=== PATIENT | female | born 1995 | race Caucasian/White ===

== ENCOUNTER 2017-09-15 12:49 | Emergency (ER) | payer OTHER ==
--- NOTE | 2017-09-15 13:58 | ED ---
General Adult HPI - General Chief complaint: Abdominal Pain Stated complaint: Flank pain Time Seen by Provider: 09/15/17 13:34 Source: patient, RN notes reviewed Mode of arrival: ambulatory Limitations: no limitations - History of Present Illness Initial comments: Patient 21-year-old female presented to the emergency room today with a chief complaint of possible urinary tract infection. She does admit to increased urinary frequency and pain. Patient states that she has had symptoms for the last 3 days. She states that she was feeling some symptoms earlier in the week but then it went away. She does admit that she had some pain to the right side but that is also gone away at this time. Patient denies any vaginal bleeding or discharge. Denies any other complaints or symptoms. Patient denies any recent fever, chills, shortness of breath, chest pain, nausea or vomiting, numbness or tingling, hematuria, constipation or diarrhea, headaches or visual changes, or any other complaints. - Related Data Home Medications Medication Instructions Recorded Confirmed DULoxetine HCL [Cymbalta] 20 mg PO DAILY 09/15/17 09/15/17 QUEtiapine [SEROquel] 100 mg PO HS 09/15/17 09/15/17 hydrOXYzine PAMOATE 50 mg PO BID 09/15/17 09/15/17 Previous Rx's Medication Instructions Recorded Phenazopyridine [Pyridium] 100 mg PO TID 3 Days day 09/15/17 Sulfamethox-Tmp 800-160Mg [Bactrim 1 tab PO Q12HR #6 tab 09/15/17 DS 800-160 mg] Allergies Allergy/AdvReac Type Severity Reaction Status Date / Time No Known Allergies Allergy Verified 09/15/17 13:46 Review of Systems ROS Statement: Those systems with pertinent positive or pertinent negative responses have been documented in the HPI. ROS Other: All systems not noted in ROS Statement are negative. Past Medical History Past Medical History: No Reported History History of Any Multi-Drug Resistant Organisms: None Reported Past Surgical History: No Surgical Hx Reported Past Psychological History: Anxiety, Bipolar, Depression Smoking Status: Current every day smoker Past Alcohol Use History: Rare Past Drug Use History: None Reported General Exam - General Exam Comments Initial Comments: General: The patient is awake and alert, in no distress, and does not appear acutely ill. Eye: Pupils are equal, round and reactive to light, extra-ocular movements are intact. No nystagmus. There is normal conjunctiva bilaterally. No signs of icterus. Ears, nose, mouth and throat: There are moist mucous membranes and no oral lesions. Neck: The neck is supple, there is no tenderness or JVD. Cardiovascular: There is a regular rate and rhythm. No murmur, rub or gallop is appreciated. Respiratory: Lungs are clear to auscultation, respirations are non-labored, breath sounds are equal. No wheezes, stridor, rales, or rhonchi. Gastrointestinal: Soft, non-distended, non-tender abdomen without masses or organomegaly noted. There is no rebound or guarding present. No CVA tenderness. Musculoskeletal: Normal ROM, no tenderness. Strength 5/5. Sensation intact. Pulses equal bilaterally 2+. Neurological: A&O x 3. CN II-XII intact, There are no obvious motor or sensory deficits. Coordination appears grossly intact. Speech is normal. Skin: Skin is warm and dry and no rashes or lesions are noted. Psychiatric: Cooperative, appropriate mood & affect, normal judgment. Limitations: no limitations Course Vital Signs 09/15/17 09/15/17 13:15 14:17 Temperature 98.2 F 98.6 F Pulse Rate 73 78 Respiratory 18 18 Rate Blood Pressure 103/71 139/97 O2 Sat by Pulse 100 98 Oximetry Medical Decision Making - Medical Decision Making Patient's urinalysis reviewed as negative test. There are 16 red cells. Rare bacteria. Patient does not that this feels similar to urinary tract infection that she's had in the past. Admits to dysuria with increased frequency. Patient says she is not worried about any STDs. No vaginal bleeding or discharge. Patient will have urine culture which is pending. Given antibiotics to cover for infection for 3 days along with Pyridium and advised to follow family doctor symptoms improving return here to emergency room if any symptoms increase worsen. - Lab Data Lab Results 09/15/17 09/15/17 Range/Units 13:30 13:30 Urine Color Yellow Urine Appearance Clear (Clear) Urine pH 7.5 (5.0-8.0) Ur Specific [place] 1.012 (1.001-1.035) Urine Protein Trace H (Negative) Urine Glucose (UA) Negative (Negative) Urine Ketones Negative (Negative) Urine Blood Trace H (Negative) Urine Nitrite Negative (Negative) Urine Bilirubin Negative (Negative) Urine Urobilinogen <2.0 (<2.0) mg/dL Ur Leukocyte Esterase Negative (Negative) Urine RBC 16 H (0-5) /hpf Urine WBC 2 (0-5) /hpf Ur Squamous Epith Cells 1 (0-4) /hpf Amorphous Sediment Rare H (None) /hpf Urine Bacteria Rare H (None) /hpf Urine Mucus Occasional H (None) /hpf Urine HCG, Qual Not Detected (Not Detectd) Disposition Clinical Impression: Cystitis Disposition: HOME SELF-CARE Condition: Good Instructions: Urinary Tract Infection in Women (ED) Additional Instructions: Please use medication as discussed. Please follow-up with family doctor in the next 2 days of symptoms have not improved. Please return to emergency room if the symptoms increase or worsen or for any other concerns. Prescriptions: Phenazopyridine [Pyridium] 100 mg PO TID 3 Days day Sulfamethox-Tmp 800-160Mg [Bactrim DS 800-160 mg] 1 tab PO Q12HR #6 tab Is patient prescribed a controlled substance at d/c from ED?: No Referrals: None,Stated [Primary Care Provider] - 1-2 days Vero Butt MD [STAFF PHYSICIAN] - 1-2 days Time of Disposition: 14:42
[2017-09-15 14:34] LABS: Amorphous Sediment,Urine Rare /hpf; Appearance,Urine Clear (Clear); Bacteria,Urine Rare /hpf; Bilirubin,Urine Negative (Negative); Blood,Urine Trace (Negative); Color,Urine Yellow; Glucose,Urine (UA) Negative (Negative); Ketones,Urine Negative (Negative); Leukocyte Esterase,Urine Negative (Negative); Mucus,Urine Occasional /hpf; Nitrite,Urine Negative (Negative); PH, Urine 7.5 (5.0-8.0); Protein,Urine Trace (Negative); RBC,Urine 16 /hpf (0-5); Specific Gravity,Urine 1.012 (1.001-1.035); Squamous Epithelial Cell,Urine 1 /hpf (0-4); Urobilinogen,Urine <2.0 mg/dL (<2.0); WBC,Urine 2 /hpf (0-5)
[2017-09-15 14:47] VITALS: BP 112/73; PULSE 74; RESP 16; TEMP 100
== END 2017-09-15 14:52 | disposition home or self-care (01) ==
LOC: EC 12:49
DX: N30.90 Cystitis, unspecified without hematuria (principal); F31.9 Bipolar disorder, unspecified; F41.9 Anxiety disorder, unspecified; F17.200 Nicotine dependence, unspecified, uncomplicated; Z79.899 Other long term (current) drug therapy
CPT/HCPCS: 81001; 81025; 87086; 99284

== ENCOUNTER 2018-11-05 20:56 | Emergency (ER) | payer OTHER ==
[2018-11-05] MEDS ORDERED: SODIUM CHLORIDE 0.9% 1,000 ML IV STA ×4 (21:37→21:38)
[2018-11-05] MEDS ORDERED: SODIUM CHLORIDE 0.9% 500 ML 500 ML IV STA ×2 (21:37→21:38)
[2018-11-05] MEDS ORDERED: ONDANSETRON 4 MG/2 ML VIAL IVP STA (21:38)
[2018-11-05] MEDS ORDERED: LORazepam 2 MG/ML INJ IV STA ×2 (21:39→23:54)
[2018-11-05 22:43] LABS: Basophils # (A) 0.1 k/uL (0-0.2); Basophils % (A) 1 %; Eosinophils # (A) 0.2 k/uL (0-0.7); Eosinophils % (A) 1 %; HCT 42.5 % (34.0-46.0); Lymphocytes # (A) 1.9 k/uL (1.0-4.8); Lymphocytes % (A) 12 %; MCH 30.3 pg (25.0-35.0); MCHC 35.2 g/dL (31.0-37.0); MCV 85.9 fL (80.0-100.0); Mean Platelet Volume 6.9; Monocytes # (A) 0.9 k/uL (0-1.0); Monocytes % (A) 6 %; Neutrophils % (A) 79 %; Platelet Count 505 k/uL (150-450); RBC 4.95 m/uL (3.80-5.40); RDW 15.4 % (11.5-15.5); WBC 15.2 k/uL (3.8-10.6)
[2018-11-05 22:52] LABS: ALT 13 U/L (9-52); AST 20 U/L (14-36); African American GFR (CKD) >90 (>60 ml/min/1.73 sqM); Albumin 5.4 g/dL (3.5-5.0); Alkaline Phosphatase 74 U/L (38-126); Anion Gap 18 mmol/L; Blood Urea Nitrogen 12 mg/dL (7-17); Carbon Dioxide 21 mmol/L (22-30); Chloride 104 mmol/L (98-107); Creatine Kinase 91 U/L (30-135); Glucose 178 mg/dL (74-99); Magnesium 1.8 mg/dL (1.6-2.3); Phosphorus 1.1 mg/dL (2.5-4.5); Potassium 3.2 mmol/L (3.5-5.1); Sodium 143 mmol/L (137-145); Total Bilirubin 0.5 mg/dL (0.2-1.3); Total Protein 9.2 g/dL (6.3-8.2)
--- NOTE | 2018-11-05 23:11 | ED ---
Anxiety HPI - General Chief Complaint: Anxiety Stated Complaint: Anxiety Time Seen by Provider: 11/05/18 21:14 Source: patient, RN notes reviewed, old records reviewed Mode of arrival: ambulatory - History of Present Illness Initial Comments: This is a 23-year-old female the ER for evaluation. This patient resents today for evaluation regards to anxiety attack panic attack. Patient states she's having significant panic related to recent meth or she believes was meth use. P at[place]ram has numbness and tingling of her extremities, mainly her hands and feet. Patient admits nausea and vomiting unable keep down fluids. Denies any other drug or alcohol abuse. Denies homicidal or suicidal thoughts. He said methods for recreation MD Complaint: anxiety, heart racing -: hour(s) Symptoms: palpitations, extremity numbness/tingling, perioral numbness/tingling, muscle cramps Place: home Previous History of Same: No Severity: moderate Quality: constant, intermittent Provoking factors: medication change (Medication use meth) Improves With: nothing Worsens With: nothing Associated symptoms: palpitations - Related Data Home Medications: Home Medications Medication Instructions Recorded Confirmed QUEtiapine FUMARATE [SEROquel] 300 mg PO HS 11/05/18 11/05/18 Allergies/Adverse Reactions: Allergies Allergy/AdvReac Type Severity Reaction Status Date / Time No Known Allergies Allergy Verified 11/05/18 21:50 Review of Systems ROS Statement: Those systems with pertinent positive or pertinent negative responses have been documented in the HPI. ROS Other: All systems not noted in ROS Statement are negative. Past Medical History Past Medical History: No Reported History History of Any Multi-Drug Resistant Organisms: None Reported Past Surgical History: No Surgical Hx Reported Past Psychological History: Anxiety, Bipolar, Depression Smoking Status: Current every day smoker Past Alcohol Use History: Rare Past Drug Use History: None Reported General Exam Limitations: no limitations General appearance: alert, in no apparent distress, anxious Head exam: Present: atraumatic, normocephalic, normal inspection Eye exam: Present: normal appearance, PERRL, EOMI. Absent: scleral icterus, conjunctival injection, periorbital swelling ENT exam: Present: normal exam, mucous membranes moist Neck exam: Present: normal inspection. Absent: tenderness, meningismus, lymphadenopathy Respiratory exam: Present: normal lung sounds bilaterally. Absent: respiratory distress, wheezes, rales, rhonchi, stridor Cardiovascular Exam: Present: regular rate, normal rhythm, normal heart sounds. Absent: systolic murmur, diastolic murmur, rubs, gallop, clicks GI/Abdominal exam: Present: soft, normal bowel sounds. Absent: distended, tenderness, guarding, rebound, rigid Extremities exam: Present: normal inspection, full ROM, normal capillary refill. Absent: tenderness, pedal edema, joint swelling, calf tenderness Back exam: Present: normal inspection Neurological exam: Present: alert, oriented X3, CN II-XII intact Psychiatric exam: Present: normal affect, normal mood Skin exam: Present: warm, dry, intact, normal color. Absent: rash Course Vital Signs 11/05/18 11/05/18 11/05/18 21:07 22:43 22:44 Temperature 98.9 F Pulse Rate 86 89 Respiratory 18 18 Rate Blood Pressure 144/73 131/71 O2 Sat by Pulse 100 98 99 Oximetry 11/05/18 11/06/18 23:00 00:00 Temperature Pulse Rate 90 84 Respiratory 18 18 Rate Blood Pressure 131/71 135/74 O2 Sat by Pulse 100 100 Oximetry - Reevaluation(s) Reevaluation #1: 11/06/18 00:08 Record is reviewed Reevaluation #2: 11/06/18 00:08 A she remains anxious Reevaluation #3: 11/06/18 00:40 Symptoms now improved Medical Decision Making - Medical Decision Making 23 female the ER for evaluation use and abuse significant panic attack. Patient is in stable condition here. Patient can be discharged home - Lab Data Result diagrams: 11/05/18 22:34 11/05/18 22:34 Lab Results 11/05/18 11/05/18 11/05/18 Range/Units 22:34 22:34 23:45 WBC 15.2 H (3.8-10.6) k/uL RBC 4.95 (3.80-5.40) m/uL Hgb 15.0 (11.4-16.0) gm/dL Hct 42.5 (34.0-46.0) % MCV 85.9 (80.0-100.0) fL MCH 30.3 (25.0-35.0) pg MCHC 35.2 (31.0-37.0) g/dL RDW 15.4 (11.5-15.5) % Plt Count 505 H (150-450) k/uL Neutrophils % 79 % Lymphocytes % 12 % Monocytes % 6 % Eosinophils % 1 % Basophils % 1 % Neutrophils # 12.0 H (1.3-7.7) k/uL Lymphocytes # 1.9 (1.0-4.8) k/uL Monocytes # 0.9 (0-1.0) k/uL Eosinophils # 0.2 (0-0.7) k/uL Basophils # 0.1 (0-0.2) k/uL Sodium 143 (137-145) mmol/L Potassium 3.2 L (3.5-5.1) mmol/L Chloride 104 (98-107) mmol/L Carbon Dioxide 21 L (22-30) mmol/L Anion Gap 18 mmol/L BUN 12 (7-17) mg/dL Creatinine 0.60 (0.52-1.04) mg/dL Est GFR (CKD-EPI)AfAm >90 (>60 ml/min/1.73 sqM) Est GFR (CKD-EPI)NonAf >90 (>60 ml/min/1.73 sqM) Glucose 178 H (74-99) mg/dL Calcium 11.0 H (8.4-10.2) mg/dL Phosphorus 1.1 L (2.5-4.5) mg/dL Magnesium 1.8 (1.6-2.3) mg/dL Total Bilirubin 0.5 (0.2-1.3) mg/dL AST 20 (14-36) U/L ALT 13 (9-52) U/L Alkaline Phosphatase 74 (38-126) U/L Creatine Kinase 91 (30-135) U/L Total Protein 9.2 H (6.3-8.2) g/dL Albumin 5.4 H (3.5-5.0) g/dL Urine Color Yellow Urine Appearance Cloudy H (Clear) Urine pH 8.5 H (5.0-8.0) Ur Specific [place] 1.029 (1.001-1.035) Urine Protein 2+ H (Negative) Urine Glucose (UA) Negative (Negative) Urine Ketones 4+ H (Negative) Urine Blood Negative (Negative) Urine Nitrite Negative (Negative) Urine Bilirubin Negative (Negative) Urine Urobilinogen <2.0 (<2.0) mg/dL Ur Leukocyte Esterase Negative (Negative) Urine RBC 7 H (0-5) /hpf Urine WBC 3 (0-5) /hpf Ur Squamous Epith Cells 2 (0-4) /hpf Urine Bacteria Rare H (None) /hpf Urine Mucus Few H (None) /hpf Urine HCG, Qual (Not Detectd) 11/05/18 Range/Units 23:45 WBC (3.8-10.6) k/uL RBC (3.80-5.40) m/uL Hgb (11.4-16.0) gm/dL Hct (34.0-46.0) % MCV (80.0-100.0) fL MCH (25.0-35.0) pg MCHC (31.0-37.0) g/dL RDW (11.5-15.5) % Plt Count (150-450) k/uL Neutrophils % % Lymphocytes % % Monocytes % % Eosinophils % % Basophils % % Neutrophils # (1.3-7.7) k/uL Lymphocytes # (1.0-4.8) k/uL Monocytes # (0-1.0) k/uL Eosinophils # (0-0.7) k/uL Basophils # (0-0.2) k/uL Sodium (137-145) mmol/L Potassium (3.5-5.1) mmol/L Chloride (98-107) mmol/L Carbon Dioxide (22-30) mmol/L Anion Gap mmol/L BUN (7-17) mg/dL Creatinine (0.52-1.04) mg/dL Est GFR (CKD-EPI)AfAm (>60 ml/min/1.73 sqM) Est GFR (CKD-EPI)NonAf (>60 ml/min/1.73 sqM) Glucose (74-99) mg/dL Calcium (8.4-10.2) mg/dL Phosphorus (2.5-4.5) mg/dL Magnesium (1.6-2.3) mg/dL Total Bilirubin (0.2-1.3) mg/dL AST (14-36) U/L ALT (9-52) U/L Alkaline Phosphatase (38-126) U/L Creatine Kinase (30-135) U/L Total Protein (6.3-8.2) g/dL Albumin (3.5-5.0) g/dL Urine Color Urine Appearance (Clear) Urine pH (5.0-8.0) Ur Specific [place] (1.001-1.035) Urine Protein (Negative) Urine Glucose (UA) (Negative) Urine Ketones (Negative) Urine Blood (Negative) Urine Nitrite (Negative) Urine Bilirubin (Negative) Urine Urobilinogen (<2.0) mg/dL Ur Leukocyte Esterase (Negative) Urine RBC (0-5) /hpf Urine WBC (0-5) /hpf Ur Squamous Epith Cells (0-4) /hpf Urine Bacteria (None) /hpf Urine Mucus (None) /hpf Urine HCG, Qual Not Detected (Not Detectd) Disposition Clinical Impression: Acute anxiety, Hyperventilation, Panic attack, Methamphetamine abuse Disposition: HOME SELF-CARE Instructions (If sedation given, give patient instructions): Generalized Anxiety Disorder (ED), Methamphetamine Abuse (ED) Is patient prescribed a controlled substance at d/c from ED?: No Referrals: None,Stated [Primary Care Provider] - 1-2 days
[2018-11-05] MEDS ORDERED: POTASSIUM BICARBONATE/CIT AC 20 MEQ TABLET.EFF PO ONE (23:22)
[2018-11-06 00:02] LABS: Appearance,Urine Cloudy (Clear); Bacteria,Urine Rare /hpf; Bilirubin,Urine Negative (Negative); Blood,Urine Negative (Negative); Color,Urine Yellow; Glucose,Urine (UA) Negative (Negative); Ketones,Urine 4+ (Negative); Leukocyte Esterase,Urine Negative (Negative); Mucus,Urine Few /hpf; Nitrite,Urine Negative (Negative); PH, Urine 8.5 (5.0-8.0); Protein,Urine 2+ (Negative); RBC,Urine 7 /hpf (0-5); Specific Gravity,Urine 1.029 (1.001-1.035); Squamous Epithelial Cell,Urine 2 /hpf (0-4); Urobilinogen,Urine <2.0 mg/dL (<2.0)
[2018-11-06 00:14] LABS: Amphetamine Screen,Urine Detected (NotDetected); Barbiturate Screen,Urine Not Detected (NotDetected); Benzodiazepines Screen,Urine Detected (NotDetected); Cocaine Screen,Urine Not Detected (NotDetected); Methadone Screen, Urine Not Detected (NotDetected); Opiate Screen,Urine Not Detected (NotDetected); Oxycodone Screen, Urine Not Detected (NotDetected); Phencyclidine Screen,Urine Not Detected (NotDetected); Tricyclic Antidepressant,Urine Detected (NotDetected); Urn Cannabinoid Scrn Detected (NotDetected)
[2018-11-06 01:04] VITALS: BP 134/78; PULSE 71; RESP 22; TEMP 97.8
== END 2018-11-06 01:04 | disposition home or self-care (01) ==
LOC: EC 20:56
DX: F41.0 Panic disorder [episodic paroxysmal anxiety] (principal); F15.10 Other stimulant abuse, uncomplicated; R06.4 Hyperventilation; F31.9 Bipolar disorder, unspecified; F17.200 Nicotine dependence, unspecified, uncomplicated; Z32.02 Encounter for pregnancy test, result negative; Z79.899 Other long term (current) drug therapy
CPT/HCPCS: 36415; 80053; 82550; 83735; 84100; 85025; 81001; 81025; 80306; 99284; 96374; 96375; 96376; 96361 ×2; J2060; J2405

== ENCOUNTER → 2019-09-17 | Outpatient (CLI) | payer OTHER ==
--- NOTE | 2019-09-17 13:59 | XR ---
EXAMINATION TYPE: XR chest 2V DATE OF EXAM: 09/17/2019 CLINICAL HISTORY: Cough TECHNIQUE: Frontal and lateral views of the chest are obtained. COMPARISON: None FINDINGS: The cardiomediastinal silhouette is within normal limits for size. Pulmonary vasculature i s normal. There is no focal air space opacity, pleural effusion, or pneumothorax seen. The osseous st ructures are intact. IMPRESSION: No acute cardiopulmonary process.
--- NOTE | 2019-09-17 14:04 | XR ---
EXAMINATION TYPE: XR abdomen 1V DATE OF EXAM: 09/17/2019 1:51 PM CLINICAL HISTORY: Right flank pain TECHNIQUE: Frontal images of the abdomen and pelvis were obtained COMPARISON: None. FINDINGS: There is a paucity of small bowel gas. Gas and fecal material is seen in non-distended colo n. There is no visceromegaly, pneumoperitoneum, or abnormal calcification appreciated. There is fecal debris overlying the right inferior renal shadow. The osseous structures are intact. IMPRESSION: 1. Nonobstructive bowel gas pattern. 2. Kidneys overlapped by bowel contents and soft tissue. No definitive calculi.
== END | disposition home or self-care (01) ==
LOC: RADXRMAIN 13:26
PROVIDERS: ATTEND Nurse Practitioner
DX: R07.9 Chest pain, unspecified (principal); R10.9 Unspecified abdominal pain
CPT/HCPCS: 71046; 74018

== ENCOUNTER 2019-10-24 12:38 | Emergency (ER) | payer OTHER ==
[2019-10-24 12:47] VITALS: TEMP 98.4
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
--- NOTE | 2019-10-24 14:29 | XR ---
EXAMINATION TYPE: XR chest 2V DATE OF EXAM: 10/24/2019 COMPARISON: 09/17/2019 HISTORY: 23-year-old female with cough TECHNIQUE: PA and lateral views FINDINGS: The cardiomediastinal silhouette, aorta, and pulmonary vasculature are within normal limits. Lungs an d pleural spaces are clear. IMPRESSION: No acute cardiopulmonary process.
[2019-10-24 14:55] VITALS: BP 122/78; PULSE 67; RESP 18
== END 2019-10-24 14:45 | disposition home or self-care (01) ==
LOC: EC 12:38
DX: S00.81XA Abrasion of other part of head, initial encounter (principal); F41.9 Anxiety disorder, unspecified; F31.9 Bipolar disorder, unspecified; F17.290 Nicotine dependence, other tobacco product, uncomplicated; Z79.899 Other long term (current) drug therapy; V43.62XA Car passenger injured in collision with other type car in traffic accident, initial encounter; Y92.410 Unspecified street and highway as the place of occurrence of the external cause; Y93.89 Activity, other specified
CPT/HCPCS: 70450; 71046; 72125; 99284

== ENCOUNTER → 2020-05-14 | Outpatient (CLI) | payer OTHER ==
[~2020-05-14] MED LIST: LIDOCAINE (PF) 10 MG/ML 2 ML VIAL IM NR; cefTRIAXone 500 MG VIAL IM NR; cefTRIAXone 500 MG VIAL IVPB NR
[2020-05-14 13:28] VITALS: BP 112/72; PULSE 89; RESP 16; TEMP 98.4
== END ==
LOC: PROCWHC3 13:12
PROVIDERS: ATTEND Obstetrics & Gynecology
DX: A54.9 Gonococcal infection, unspecified (principal)
CPT/HCPCS: 96372

== ENCOUNTER 2020-06-19 14:47 | Emergency (ER) | payer OTHER ==
[2020-06-19 14:54] VITALS: RESP 18
--- NOTE | 2020-06-19 15:14 | ED ---
Female Urogenital HPI - General Chief complaint: Urogenital Stated complaint: Female UG Time Seen by Provider: 06/19/20 15:04 Source: patient, RN notes reviewed Mode of arrival: ambulatory Limitations: no limitations - History of Present Illness Initial comments: Patient is a 24-year-old female that presents to emergency department with pelvic pain. She notes that she was recently treated for STI's on an outpatient basis from her RADIOLOGY ADMINISTRATOR. She notes that that was approximately a month ago. She notes that she continues to have pelvic pain with discomfort in her lower abdomen. She reports a new sexual partner as of today and states that she knows his sexual history. She notes that she was sent here by her RADIOLOGY ADMINISTRATOR to get evaluated for pelvic inflammatory disease. She denied any chest pain first breath headache nausea vomiting diarrhea constipation fever fatigue chills. - Related Data Home Medications Medication Instructions Recorded Confirmed valACYclovir [Valtrex] 500 mg PO DAILY 05/14/20 06/19/20 Clindamycin Phosohate 1% Pledgets 1 applic TOPICAL BID 06/19/20 06/19/20 Previous Rx's Medication Instructions Recorded Doxycycline Monohydrate [Monodox] 100 mg PO Q12HR #28 cap 06/19/20 metroNIDAZOLE [Flagyl] 500 mg PO BID #28 tab 06/19/20 Allergies Allergy/AdvReac Type Severity Reaction Status Date / Time No Known Allergies Allergy Verified 06/19/20 16:27 Review of Systems ROS Statement: Those systems with pertinent positive or pertinent negative responses have been documented in the HPI. ROS Other: All systems not noted in ROS Statement are negative. Past Medical History Past Medical History: COPD Additional Past Medical History / Comment(s): IBS, kidney stones History of Any Multi-Drug Resistant Organisms: None Reported Past Surgical History: No Surgical Hx Reported Additional Past Surgical History / Comment(s): EGD Past Psychological History: Anxiety, Bipolar, Depression Smoking Status: Vaper Past Alcohol Use History: None Reported Past Drug Use History: Marijuana General Exam Limitations: no limitations General appearance: alert, in no apparent distress Head exam: Present: atraumatic, normocephalic, normal inspection Eye exam: Present: normal appearance, PERRL, EOMI. Absent: scleral icterus, conjunctival injection, periorbital swelling Neck exam: Present: normal inspection. Absent: tenderness, meningismus, lymphadenopathy Respiratory exam: Present: normal lung sounds bilaterally. Absent: respiratory distress, wheezes, rales, rhonchi, stridor Cardiovascular Exam: Present: regular rate, normal rhythm, normal heart sounds. Absent: systolic murmur, diastolic murmur, rubs, gallop, clicks GI/Abdominal exam: Present: soft, tenderness (Bilateral lower abdomen), normal bowel sounds. Absent: distended, guarding, rebound, rigid Extremities exam: Present: normal inspection, full ROM, normal capillary refill. Absent: tenderness, pedal edema, joint swelling, calf tenderness Neurological exam: Present: alert, oriented X3, CN II-XII intact Psychiatric exam: Present: normal affect, normal mood Skin exam: Present: warm, dry, intact, normal color. Absent: rash Course Vital Signs 06/19/20 14:49 Temperature 97.5 F L Pulse Rate 71 Respiratory 18 Rate Blood Pressure 114/56 O2 Sat by Pulse 98 Oximetry Medical Decision Making - Medical Decision Making 24-year-old female with pelvic/lower abdominal pain. Labs, CT of the abdomen and pelvis ordered. 500 mg of ceftriaxone IM ordered. Patient tolerated pelvic exam well. Case discussed with Dr. Mathews, patient discharge home with follow-up to primary care and RADIOLOGY ADMINISTRATOR. - Lab Data Result diagrams: 06/19/20 15:33 Lab Results 06/19/20 06/19/20 06/19/20 Range/Units 15:33 15:33 15:33 WBC 7.8 (3.8-10.6) k/uL RBC 4.33 (3.80-5.40) m/uL Hgb 13.5 (11.4-16.0) gm/dL Hct 38.6 (34.0-46.0) % MCV 89.3 (80.0-100.0) fL MCH 31.1 (25.0-35.0) pg MCHC 34.8 (31.0-37.0) g/dL RDW 12.0 (11.5-15.5) % Plt Count 392 (150-450) k/uL MPV 6.9 Neutrophils % 61 % Lymphocytes % 31 % Monocytes % 5 % Eosinophils % 1 % Basophils % 1 % Neutrophils # 4.7 (1.3-7.7) k/uL Lymphocytes # 2.4 (1.0-4.8) k/uL Monocytes # 0.4 (0-1.0) k/uL Eosinophils # 0.1 (0-0.7) k/uL Basophils # 0.1 (0-0.2) k/uL ESR 28 H (0-20) mm/hr C-Reactive Protein (<1.0) mg/dL Urine Color Yellow Urine Appearance Clear (Clear) Urine pH 6.5 (5.0-8.0) Ur Specific [place] 1.024 (1.001-1.035) Urine Protein Trace H (Negative) Urine Glucose (UA) Negative (Negative) Urine Ketones Negative (Negative) Urine Blood Negative (Negative) Urine Nitrite Negative (Negative) Urine Bilirubin Negative (Negative) Urine Urobilinogen <2.0 (<2.0) mg/dL Ur Leukocyte Esterase Negative (Negative) Urine HCG, Qual Not Detected (Not Detectd) 06/19/20 Range/Units 15:33 WBC (3.8-10.6) k/uL RBC (3.80-5.40) m/uL Hgb (11.4-16.0) gm/dL Hct (34.0-46.0) % MCV (80.0-100.0) fL MCH (25.0-35.0) pg MCHC (31.0-37.0) g/dL RDW (11.5-15.5) % Plt Count (150-450) k/uL MPV Neutrophils % % Lymphocytes % % Monocytes % % Eosinophils % % Basophils % % Neutrophils # (1.3-7.7) k/uL Lymphocytes # (1.0-4.8) k/uL Monocytes # (0-1.0) k/uL Eosinophils # (0-0.7) k/uL Basophils # (0-0.2) k/uL ESR (0-20) mm/hr C-Reactive Protein 2.7 H (<1.0) mg/dL Urine Color Urine Appearance (Clear) Urine pH (5.0-8.0) Ur Specific [place] (1.001-1.035) Urine Protein (Negative) Urine Glucose (UA) (Negative) Urine Ketones (Negative) Urine Blood (Negative) Urine Nitrite (Negative) Urine Bilirubin (Negative) Urine Urobilinogen (<2.0) mg/dL Ur Leukocyte Esterase (Negative) Urine HCG, Qual (Not Detectd) - Radiology Data Radiology results: report reviewed, image reviewed CT of the abdomen and pelvis: Negative computed tomography scan of abdomen and pelvis. Normal appendix. No renal stones or obstruction. Disposition Clinical Impression: Pelvic inflammatory disease Disposition: HOME SELF-CARE Condition: Stable Instructions (If sedation given, give patient instructions): Pelvic Inflammatory Disease (ED) Additional Instructions: Please return to the Emergency Department if symptoms worsen or any other concerns. Follow-up with primary care and RADIOLOGY ADMINISTRATOR in 3-5 days. Take antibiotics as prescribed until complete. Avoid any sexual intercourse for at least 2 weeks. Contact all sexual partners within the last 60 days to have them get tested and treated also. Prescriptions: metroNIDAZOLE [Flagyl] 500 mg PO BID #28 tab Doxycycline Monohydrate [Monodox] 100 mg PO Q12HR #28 cap Is patient prescribed a controlled substance at d/c from ED?: No Referrals: Arina Elizabeth [facility] [Primary Care Provider] - 1-2 days Time of Disposition: 18:03
[2020-06-19 15:49] LABS: Appearance,Urine Clear (Clear); Bilirubin,Urine Negative (Negative); Blood,Urine Negative (Negative); Color,Urine Yellow; Glucose,Urine (UA) Negative (Negative); Ketones,Urine Negative (Negative); Leukocyte Esterase,Urine Negative (Negative); Nitrite,Urine Negative (Negative); PH, Urine 6.5 (5.0-8.0); Protein,Urine Trace (Negative); Specific Gravity,Urine 1.024 (1.001-1.035); Urobilinogen,Urine <2.0 mg/dL (<2.0)
[2020-06-19 15:53] LABS: Basophils # (A) 0.1 k/uL (0-0.2); Basophils % (A) 1 %; Eosinophils # (A) 0.1 k/uL (0-0.7); Eosinophils % (A) 1 %; HCT 38.6 % (34.0-46.0); HGB 13.5 gm/dL (11.4-16.0); Lymphocytes # (A) 2.4 k/uL (1.0-4.8); Lymphocytes % (A) 31 %; MCH 31.1 pg (25.0-35.0); MCHC 34.8 g/dL (31.0-37.0); MCV 89.3 fL (80.0-100.0); Mean Platelet Volume 6.9; Monocytes # (A) 0.4 k/uL (0-1.0); Monocytes % (A) 5 %; Neutrophils # (A) 4.7 k/uL (1.3-7.7); Neutrophils % (A) 61 %; Platelet Count 392 k/uL (150-450); RBC 4.33 m/uL (3.80-5.40); WBC 7.8 k/uL (3.8-10.6)
[2020-06-19 16:53] LABS: Erythrocyte Sedimentation Rate 28 mm/hr (0-20)
[2020-06-19] MEDS ORDERED: cefTRIAXone 250 MG VIAL IM STA ×2 (17:14→18:21)
[2020-06-19] MEDS ORDERED: cefTRIAXone 250 MG VIAL IV STA (17:27)
--- NOTE | 2020-06-19 17:57 | CT ---
EXAMINATION TYPE: CT abdomen pelvis w con DATE OF EXAM: 06/19/2020 COMPARISON: None HISTORY: Lower abdominal pain with painful urination. CT DLP: 785.4 mGycm Automated exposure control for dose reduction was used. CONTRAST: Performed with IV Contrast, patient injected with 100 mL of Isovue 300. Images were obtained from the diaphragm to the floor the pelvis with IV contrast. Lung bases are clear. There is no pleural effusion. Heart size is normal. There is no pericardial eff usion. Liver spleen stomach pancreas gallbladder appear normal. The bile ducts are not dilated. There is no adrenal mass. Kidneys show satisfactory contrast opacification. There is no hydronephrosi s. There is no retroperitoneal adenopathy. Bladder distends smoothly. Uterus is anteverted. There is no free fluid in the pelvis. There is no evidence of pelvic mass. Lumbar vertebra have normal spacing and alignment. Posterior elements are intact. There is posterior disc herniation at L5-S1. There is rudimentary disc at S1-S2. Sacroiliac joints are intact. Bony pelv is is intact. The appendix is medial. There is no sign of appendicitis. There is no mesenteric edema. There is no ascites or free air. There is no bowel obstruction. Delayed images show normal renal excretion. IMPRESSION: Negative CT scan abdomen and pelvis. Normal appendix. No renal stone or obstruction..
[2020-06-19] MEDS ORDERED: cefTRIAXone 500 MG VIAL IM STA ×2 (18:01→18:23)
[2020-06-19] MEDS ORDERED: cefTRIAXone IN SWFI 1,000 MG/10 ML SYRINGE IVP STA (18:08)
[2020-06-19 18:35] VITALS: BP 119/78; PULSE 78; TEMP 98
[2020-06-22 13:17] LABS: C. trachomatis,PCR Negative (Neg,Equiv); Chlamydia trachomatis Source Vagina; N. gonorrhoeae,PCR Negative (Neg,Equiv); Neisseria Source Vagina
== END 2020-06-19 18:35 | disposition home or self-care (01) ==
LOC: EC 14:47
DX: N73.9 Female pelvic inflammatory disease, unspecified (principal); J44.9 Chronic obstructive pulmonary disease, unspecified; Z87.442 Personal history of urinary calculi; F32.9 Major depressive disorder, single episode, unspecified; F12.90 Cannabis use, unspecified, uncomplicated
CPT/HCPCS: 36415; 85652; 85025; 86140; 81003; 81025; 87808; 87491; 87591; 87070; 74177; 99284; 96372; J0696; Q9967

== ENCOUNTER 2021-02-20 06:21 | Emergency (ER) | payer OTHER ==
[2021-02-20 07:00] VITALS: RESP 18; TEMP 98.6
[2021-02-20] MEDS ORDERED: SODIUM CHLORIDE 0.9% 1,000 ML IV STA (07:01)
[2021-02-20] MEDS ORDERED: KETOROLAC 15 MG/ML 1 ML VIAL IVP STA (07:01)
[2021-02-20] MEDS ORDERED: ONDANSETRON 4 MG/2 ML VIAL IVP STA (07:01)
--- NOTE | 2021-02-20 08:08 | XR ---
EXAMINATION TYPE: XR KUB DATE OF EXAM: 02/20/2021 7:57 AM INDICATION: Patient age:Female; 25 years old; Reason for study: abdominal pain; COMPARISON: CT abdomen pelvis 06/19/2020 TECHNIQUE: One radiographic view of the abdomen was obtained. FINDINGS: The bowel gas pattern is nonspecific without dilated loops of small or large bowel. There i s no evidence for organomegaly or pneumoperitoneum. The osseous structures are intact. No abnormal calcifications are present. Fecal material and gas are demonstrated throughout the colon and rectum. IMPRESSION: No acute abdominal process.
[2021-02-20 08:19] LABS: Basophils % (A) 0 %; Eosinophils % (A) 0 %; HCT 41.3 % (34.0-46.0); HGB 13.9 gm/dL (11.4-16.0); Lymphocytes # (A) 1.4 k/uL (1.0-4.8); Lymphocytes % (A) 13 %; MCH 31.2 pg (25.0-35.0); MCHC 33.8 g/dL (31.0-37.0); MCV 92.4 fL (80.0-100.0); Mean Platelet Volume 6.7; Monocytes # (A) 0.4 k/uL (0-1.0); Monocytes % (A) 4 %; Neutrophils # (A) 8.7 k/uL (1.3-7.7); Neutrophils % (A) 81 %; Platelet Count 380 k/uL (150-450); RBC 4.47 m/uL (3.80-5.40); RDW 12.3 % (11.5-15.5); WBC 10.7 k/uL (3.8-10.6)
[2021-02-20 08:23] LABS: Appearance,Urine Cloudy (Clear); Bacteria,Urine Rare /hpf; Bilirubin,Urine Negative (Negative); Blood,Urine Large (Negative); Calcium Oxalate Crystals,Urine Occasional /hpf; Color,Urine Yellow; Glucose,Urine (UA) Negative (Negative); Ketones,Urine Negative (Negative); Leukocyte Esterase,Urine Small (Negative); Mucus,Urine Many /hpf; Nitrite,Urine Negative (Negative); Protein,Urine 1+ (Negative); RBC,Urine >182 /hpf (0-5); Specific Gravity,Urine 1.031 (1.001-1.035); Squamous Epithelial Cell,Urine 13 /hpf (0-4); Urobilinogen,Urine <2.0 mg/dL (<2.0); WBC,Urine 17 /hpf (0-5)
[2021-02-20 08:34] LABS: ALT 15 U/L (4-34); AST 19 U/L (14-36); African American GFR (CKD) >90 (>60 ml/min/1.73 sqM); Albumin 4.5 g/dL (3.5-5.0); Alkaline Phosphatase 60 U/L (38-126); Amylase 54 U/L (30-110); Anion Gap 9 mmol/L; Blood Urea Nitrogen 15 mg/dL (7-17); Calcium 9.6 mg/dL (8.4-10.2); Carbon Dioxide 25 mmol/L (22-30); Chloride 105 mmol/L (98-107); Glucose 119 mg/dL (74-99); Lipase 44 U/L (23-300); Non-African American GFR(CKD) >90 (>60 ml/min/1.73 sqM); Potassium 4.4 mmol/L (3.5-5.1); Sodium 139 mmol/L (137-145); Total Bilirubin 0.3 mg/dL (0.2-1.3); Total Protein 7.8 g/dL (6.3-8.2)
[2021-02-20] MEDS ORDERED: cefTRIAXone IN SWFI 1,000 MG/10 ML SYRINGE IVP STA (08:34)
--- NOTE | 2021-02-20 09:36 | ED ---
Abdominal Pain HPI - General Chief Complaint: Abdominal Pain Stated Complaint: Poss Kidney Stone Time Seen by Provider: 02/20/21 07:01 Source: patient, RN notes reviewed Mode of arrival: ambulatory Limitations: no limitations - History of Present Illness Initial Comments: Patient is a 25-year-old female that presents to the emergency department complaining of right flank pain. She notes she does have a history of kidney stones and this feels very similar. She notes the pain started last night. She also informed nurse that she might have a tampon stuck in. She is unsure. Patient was otherwise well-appearing in no apparent distress. She denied chest pain shortness of breath headache nausea vomiting diarrhea constipation fever fatigue chills. - Related Data Home Medications Medication Instructions Recorded Confirmed valACYclovir [Valtrex] 500 mg PO DAILY 05/14/20 06/19/20 Clindamycin Phosohate 1% Pledgets 1 applic TOPICAL BID 06/19/20 06/19/20 Previous Rx's Medication Instructions Recorded Doxycycline Monohydrate [Monodox] 100 mg PO Q12HR #28 cap 06/19/20 metroNIDAZOLE [Flagyl] 500 mg PO BID #28 tab 06/19/20 Cephalexin [Keflex] 500 mg PO Q6HR #40 cap 02/20/21 Ketorolac [Toradol] 10 mg PO Q8HR #15 tab 02/20/21 Tamsulosin [Flomax] 0.4 mg PO DAILY #7 cap 02/20/21 Allergies Allergy/AdvReac Type Severity Reaction Status Date / Time No Known Allergies Allergy Verified 02/20/21 06:57 Review of Systems ROS Statement: Those systems with pertinent positive or pertinent negative responses have been documented in the HPI. ROS Other: All systems not noted in ROS Statement are negative. Past Medical History Past Medical History: COPD Additional Past Medical History / Comment(s): IBS, kidney stones History of Any Multi-Drug Resistant Organisms: None Reported Past Surgical History: No Surgical Hx Reported Additional Past Surgical History / Comment(s): EGD Past Psychological History: Anxiety, Bipolar, Depression Smoking Status: Vaper Past Alcohol Use History: None Reported Past Drug Use History: Marijuana General Exam Limitations: no limitations General appearance: alert, in no apparent distress Head exam: Present: atraumatic, normocephalic, normal inspection Eye exam: Present: normal appearance, PERRL, EOMI. Absent: scleral icterus, conjunctival injection, periorbital swelling ENT exam: Present: normal exam, mucous membranes moist Neck exam: Present: normal inspection Respiratory exam: Present: normal lung sounds bilaterally. Absent: respiratory distress, wheezes, rales, rhonchi, stridor Cardiovascular Exam: Present: regular rate, normal rhythm, normal heart sounds. Absent: systolic murmur, diastolic murmur, rubs, gallop, clicks External exam: Present: normal external exam. Absent: erythema, swelling, lesions, lacerations, ecchymosis Speculum exam: Present: normal speculum exam. Absent: erythema, vaginal discharge, cervical discharge, vaginal bleeding, foreign body Extremities exam: Present: normal inspection, full ROM, normal capillary refill. Absent: tenderness, pedal edema, joint swelling, calf tenderness Neurological exam: Present: alert, oriented X3 Psychiatric exam: Present: normal affect, normal mood Skin exam: Present: warm, dry, intact, normal color. Absent: rash Course Vital Signs 02/20/21 06:57 Temperature 98.6 F Pulse Rate 81 Respiratory 18 Rate Blood Pressure 114/67 O2 Sat by Pulse 99 Oximetry Medical Decision Making - Medical Decision Making 25-year-old female complaining of right flank pain history kidney stones. Labs, KUB, 1 L normal saline, 15 mg Toradol, 4 mg of Zofran ordered. Labs: CBC and CMP unremarkable, urinalysis shows large quantities or red blood cells 17 white blood cells. 1 g Rocephin ordered. Medication for urinary tract infection and kidney stone sent to pharmacy. Patient is able to discharge home. Case discussed with Dr. Davis. - Lab Data Result diagrams: 02/20/21 08:03 02/20/21 08:03 Lab Results 02/20/21 02/20/21 02/20/21 Range/Units 08:03 08:03 08:03 WBC 10.7 H (3.8-10.6) k/uL RBC 4.47 (3.80-5.40) m/uL Hgb 13.9 (11.4-16.0) gm/dL Hct 41.3 (34.0-46.0) % MCV 92.4 (80.0-100.0) fL MCH 31.2 (25.0-35.0) pg MCHC 33.8 (31.0-37.0) g/dL RDW 12.3 (11.5-15.5) % Plt Count 380 (150-450) k/uL MPV 6.7 Neutrophils % 81 % Lymphocytes % 13 % Monocytes % 4 % Eosinophils % 0 % Basophils % 0 % Neutrophils # 8.7 H (1.3-7.7) k/uL Lymphocytes # 1.4 (1.0-4.8) k/uL Monocytes # 0.4 (0-1.0) k/uL Eosinophils # 0.0 (0-0.7) k/uL Basophils # 0.0 (0-0.2) k/uL Sodium (137-145) mmol/L Potassium (3.5-5.1) mmol/L Chloride (98-107) mmol/L Carbon Dioxide (22-30) mmol/L Anion Gap mmol/L BUN (7-17) mg/dL Creatinine (0.52-1.04) mg/dL Est GFR (CKD-EPI)AfAm (>60 ml/min/1.73 sqM) Est GFR (CKD-EPI)NonAf (>60 ml/min/1.73 sqM) Glucose (74-99) mg/dL Calcium (8.4-10.2) mg/dL Total Bilirubin (0.2-1.3) mg/dL AST (14-36) U/L ALT (4-34) U/L Alkaline Phosphatase (38-126) U/L Total Protein (6.3-8.2) g/dL Albumin (3.5-5.0) g/dL Amylase (30-110) U/L Lipase (23-300) U/L Urine Color Yellow Urine Appearance Cloudy H (Clear) Urine pH 6.0 (5.0-8.0) Ur Specific [place] 1.031 (1.001-1.035) Urine Protein 1+ H (Negative) Urine Glucose (UA) Negative (Negative) Urine Ketones Negative (Negative) Urine Blood Large H (Negative) Urine Nitrite Negative (Negative) Urine Bilirubin Negative (Negative) Urine Urobilinogen <2.0 (<2.0) mg/dL Ur Leukocyte Esterase Small H (Negative) Urine RBC >182 H (0-5) /hpf Urine WBC 17 H (0-5) /hpf Ur Squamous Epith Cells 13 H (0-4) /hpf Calcium Oxalate Crystal Occasional H (None) /hpf Urine Bacteria Rare H (None) /hpf Urine Mucus Many H (None) /hpf Urine HCG, Qual Not Detected (Not Detectd) 02/20/21 Range/Units 08:03 WBC (3.8-10.6) k/uL RBC (3.80-5.40) m/uL Hgb (11.4-16.0) gm/dL Hct (34.0-46.0) % MCV (80.0-100.0) fL MCH (25.0-35.0) pg MCHC (31.0-37.0) g/dL RDW (11.5-15.5) % Plt Count (150-450) k/uL MPV Neutrophils % % Lymphocytes % % Monocytes % % Eosinophils % % Basophils % % Neutrophils # (1.3-7.7) k/uL Lymphocytes # (1.0-4.8) k/uL Monocytes # (0-1.0) k/uL Eosinophils # (0-0.7) k/uL Basophils # (0-0.2) k/uL Sodium 139 (137-145) mmol/L Potassium 4.4 (3.5-5.1) mmol/L Chloride 105 (98-107) mmol/L Carbon Dioxide 25 (22-30) mmol/L Anion Gap 9 mmol/L BUN 15 (7-17) mg/dL Creatinine 0.75 (0.52-1.04) mg/dL Est GFR (CKD-EPI)AfAm >90 (>60 ml/min/1.73 sqM) Est GFR (CKD-EPI)NonAf >90 (>60 ml/min/1.73 sqM) Glucose 119 H (74-99) mg/dL Calcium 9.6 (8.4-10.2) mg/dL Total Bilirubin 0.3 (0.2-1.3) mg/dL AST 19 (14-36) U/L ALT 15 (4-34) U/L Alkaline Phosphatase 60 (38-126) U/L Total Protein 7.8 (6.3-8.2) g/dL Albumin 4.5 (3.5-5.0) g/dL Amylase 54 (30-110) U/L Lipase 44 (23-300) U/L Urine Color Urine Appearance (Clear) Urine pH (5.0-8.0) Ur Specific [place] (1.001-1.035) Urine Protein (Negative) Urine Glucose (UA) (Negative) Urine Ketones (Negative) Urine Blood (Negative) Urine Nitrite (Negative) Urine Bilirubin (Negative) Urine Urobilinogen (<2.0) mg/dL Ur Leukocyte Esterase (Negative) Urine RBC (0-5) /hpf Urine WBC (0-5) /hpf Ur Squamous Epith Cells (0-4) /hpf Calcium Oxalate Crystal (None) /hpf Urine Bacteria (None) /hpf Urine Mucus (None) /hpf Urine HCG, Qual (Not Detectd) - Radiology Data Radiology results: report reviewed, image reviewed KUB: Nonacute abdomen. Disposition Clinical Impression: Urinary tract infection, Kidney stone Disposition: HOME SELF-CARE Condition: Stable Instructions (If sedation given, give patient instructions): Kidney Stones (ED) Additional Instructions: Please return to the Emergency Department if symptoms worsen or any other concerns. Follow-up with primary care in 1-2 days. Take medication as prescribed. Is patient prescribed a controlled substance at d/c from ED?: No Referrals: [facility] [Primary Care Provider] - 1-2 days Time of Disposition: 09:36
[2021-02-20 09:57] VITALS: BP 110/63; PULSE 85
== END 2021-02-20 09:57 | disposition home or self-care (01) ==
LOC: EC 06:21
DX: N20.0 Calculus of kidney (principal); N39.0 Urinary tract infection, site not specified; J44.9 Chronic obstructive pulmonary disease, unspecified; F31.9 Bipolar disorder, unspecified; F41.9 Anxiety disorder, unspecified; F17.290 Nicotine dependence, other tobacco product, uncomplicated; F12.90 Cannabis use, unspecified, uncomplicated; Z79.899 Other long term (current) drug therapy
CPT/HCPCS: 36415; 80053; 82150; 83690; 85025; 81001; 81025; 87086; 74018; 99284; 96374; 96375 ×2; 96361; J2405; J0696; J1885

== ENCOUNTER 2022-06-20 13:01 | Emergency (ER) | payer OTHER ==
[2022-06-20 13:18] VITALS: RESP 18; TEMP 97.9
--- NOTE | 2022-06-20 17:24 | ED ---
General Adult HPI - General Chief complaint: Skin/Abscess/Foreign Body Stated complaint: Skin Infection Time Seen by Provider: 06/20/22 14:01 Source: patient, RN notes reviewed Mode of arrival: ambulatory Limitations: no limitations - History of Present Illness Initial comments: 26-year-old female with no significant medical history presents to the emergency department with a chief complaint of rash. Patient reports that she's had a rash in her genital area for 14 months. She reports that she has seen multiple providers for the same thing for which he has not given her any results. She reports pain when having intercourse. She reports that the rash is dry and cracked. She denies any fevers, chills, flank pain, dysuria, hematuria, vaginal discharge, vaginal bleeding, vaginal cramping. She reports that she was given triamcinolone cream however she ran out. Patient reports that she was recently seen at [facility] for same. - Related Data Home Medications Medication Instructions Recorded Confirmed valACYclovir HCL [Valtrex] 500 mg PO DAILY 05/14/20 06/19/20 Clindamycin Phosohate 1% [place] 1 applic TOPICAL BID 06/19/20 06/19/20 Previous Rx's Medication Instructions Recorded Doxycycline Monohydrate [Monodox] 100 mg PO Q12HR #28 cap 06/19/20 metroNIDAZOLE [Flagyl] 500 mg PO BID #28 tab 06/19/20 Cephalexin [Keflex] 500 mg PO Q6HR #40 cap 02/20/21 Ketorolac [Toradol] 10 mg PO Q8HR #15 tab 02/20/21 Tamsulosin [Flomax] 0.4 mg PO DAILY #7 cap 02/20/21 Triamcinolone 0.1% Cream [Kenalog 1 applicatio TOPICAL BID #15 gram 06/20/22 0.1% Cream] Allergies Allergy/AdvReac Type Severity Reaction Status Date / Time No Known Allergies Allergy Verified 06/20/22 13:17 Review of Systems ROS Statement: Those systems with pertinent positive or pertinent negative responses have been documented in the HPI. ROS Other: All systems not noted in ROS Statement are negative. Past Medical History Past Medical History: COPD Additional Past Medical History / Comment(s): IBS, kidney stones History of Any Multi-Drug Resistant Organisms: None Reported Past Surgical History: No Surgical Hx Reported Additional Past Surgical History / Comment(s): EGD Past Psychological History: Anxiety, Bipolar, Depression Smoking Status: Vaper Past Alcohol Use History: None Reported Past Drug Use History: Marijuana General Exam - General Exam Comments Initial Comments: General: Alert, in no acute distress, afebrile Head: atraumatic normocephalic. Eyes PERRL, EOMI intact, mucous membranes moist Respiratory: Lungs clear to auscultation bilaterally Cardiovascular: Heart rate regular rate and rhythm Abdominal: Soft without guarding or rebound : external exam is with diffuse vesicular lesions, that are tender and open. Vaginal canal without discharge, Cervical os is visualized and is closed. There is no cervical motion tenderness for abnormal adnexal tenderness. Pelvic exam performed with engine generator assembler, Vielka, Tech present. Extremities: Normal inspection with full range of motion and normal capillary refill Neuroogic: alert and oriented 3, CN II-XII intact, able to ambulate with steady gait Skin: warm dry and intact with normal color Limitations: no limitations Course Vital Signs 06/20/22 13:14 Temperature 97.9 F Pulse Rate 98 Respiratory 18 Rate Blood Pressure 128/77 O2 Sat by Pulse 100 Oximetry Medical Decision Making - Medical Decision Making Was pt. sent in by a medical professional or institution (DARIEN Pfeiffer, ADVISORY INTERN, urgent ca re, hospital, or fdc...) When possible be specific @ -[No] Did you speak to anyone other than the patient for history (EMS, parent, family, police, friend...)? What history was obtained from this source @ -[No] Did you review nursing and triage notes (agree or disagree)? Why? @ -[I reviewed and agree with nursing and triage notes] Were old charts reviewed (outside hosp., previous admission, EMS record, old EKG, old radiological studies, urgent care reports/EKG's, fdc records)? Report findings @ -[No old charts were reviewed] Differential Diagnosis (chest pain, altered mental status, abdominal pain women, abdominal pain men, vaginal bleeding, weakness, fever, dyspnea, syncope, headache, dizziness, GI bleed, back pain, seizure, CVA, palpatations, mental health, musculoskeletal)? @ -[not applicable] EKG interpreted by me (3pts min.). @ -[As above] X-rays interpreted by me (1pt min.). @ -[None done] CT interpreted by me (1pt min.). @ -[None done] U/S interpreted by me (1pt. min.). @ -[None done] What testing was considered but not performed or refused? (CT, X-rays, U/S, labs)? Why? @ -[None] What meds were considered but not given or refused? Why? @ -[None] Did you discuss the management of the patient with other professionals (professionals i.e. , PA, ADVISORY INTERN, lab, RT, psych nurse, social work job titles, shovel engineer, teacher, parking regulation enforcement officer, heel caser)? Give summary @ -[No] Was smoking cessation discussed for >3mins.? @ -[No] Was critical care preformed (if so, how long)? @ -[No] Were there social determinants of health that impacted care today? How? (Homelessness, low income, unemployed, alcoholism, drug addiction, transportation, low edu. Level, literacy, decrease access to med. care, usp, rehab)? @ -[No] Was there de-escalation of care discussed even if they declined (Discuss DNR or withdrawal of care, Hospice)? DNR status @ -[No] What co-morbidities impacted this encounter? (DM, HTN, Smoking, COPD, CAD, Cancer, CVA, ARF, Chemo, Hep., AIDS, mental health diagnosis, sleep apnea, morbid obesity)? @ -[None] Was patient admitted / discharged? Hospital course, mention meds given and route, prescriptions, significant lab abnormalities, going to OR and other pertinent info. @ Discharged. This is a 26-year-old female who presents to the emergency department with vaginal rash. Patient is physical exam performed. Physical exam reveals fissures and vesicles in the perianal area. Patient had a urinalysis performed which was unremarkable. I discussed the results in detail with the patient verbalized understanding and all questions were addressed. Return precautions were discussed at length. Patient was discharged in stable condition. Case discussed with Dr. Sheehan, [facility] who agrees with plan of care Undiagnosed new problem with uncertain prognosis? @ -[No] Drug Therapy requiring intensive monitoring for toxicity (Heparin, Nitro, Insulin, Cardizem)? @ -[No] Were any procedures done? @ -[No] Diagnosis/symptom? @ -vaginal rash Acute, or Chronic, or Acute on Chronic? @ -acute Uncomplicated (without systemic symptoms) or Complicated (systemic symptoms)? @ -uncomplicated Side effects of treatment? @ -[No] Exacerbation, Progression, or Severe Exacerbation? @ -[No] Poses a threat to life or bodily function? How? (Chest pain, [place], [place], pneumonia, PE, COPD, DKA, ARF, appy, cholecystitis, CVA, Diverticulitis, Homicidal, Suicidal, threat to staff... and all critical care pts) @ -low likelihood - Lab Data Lab Results 06/20/22 Range/Units 17:03 Urine Color Yellow Urine Appearance Turbid H (Clear) Urine pH 7.5 (5.0-8.0) Ur Specific [place] 1.021 (1.001-1.035) Urine Protein Negative (Negative) Urine Glucose (UA) Negative (Negative) Urine Ketones 1+ H (Negative) Urine Blood Negative (Negative) Urine Nitrite Negative (Negative) Urine Bilirubin Negative (Negative) Urine Urobilinogen <2.0 (<2.0) mg/dL Ur Leukocyte Esterase Negative (Negative) Ur Squamous Epith Cells 1 (0-4) /hpf Amorphous Sediment Occasional H (None) /hpf Urine Mucus Many H (None) /hpf Disposition Clinical Impression: Skin infection Disposition: HOME SELF-CARE Condition: Stable Instructions (If sedation given, give patient instructions): Acute Rash (ED) Additional Instructions: Please return to the nearest emergency department if symptoms worsen or persist Prescriptions: Triamcinolone 0.1% Cream [Kenalog 0.1% Cream] 1 applicatio TOPICAL BID #15 gram Is patient prescribed a controlled substance at d/c from ED?: No Referrals: Swathi Ramirez DO [Primary Care Provider] - 1-2 days Time of Disposition: 17:24
[2022-06-20 17:31] LABS: Amorphous Sediment,Urine Occasional /hpf; Appearance,Urine Turbid (Clear); Bilirubin,Urine Negative (Negative); Blood,Urine Negative (Negative); Color,Urine Yellow; Glucose,Urine (UA) Negative (Negative); Ketones,Urine 1+ (Negative); Leukocyte Esterase,Urine Negative (Negative); Mucus,Urine Many /hpf; Nitrite,Urine Negative (Negative); PH, Urine 7.5 (5.0-8.0); Protein,Urine Negative (Negative); Specific Gravity,Urine 1.021 (1.001-1.035); Squamous Epithelial Cell,Urine 1 /hpf (0-4); Urobilinogen,Urine <2.0 mg/dL (<2.0)
[2022-06-20 18:35] VITALS: BP 122/78; PULSE 88
== END 2022-06-20 18:15 | disposition home or self-care (01) ==
LOC: EC 13:01
DX: L08.9 Local infection of the skin and subcutaneous tissue, unspecified (principal); J44.9 Chronic obstructive pulmonary disease, unspecified; F12.90 Cannabis use, unspecified, uncomplicated; F17.290 Nicotine dependence, other tobacco product, uncomplicated; Z79.2 Long term (current) use of antibiotics; Z86.59 Personal history of other mental and behavioral disorders
CPT/HCPCS: 81001; 87529; 99283

== ENCOUNTER 2023-06-21 08:39 | Day surgery (SDC) | payer OTHER ==
[2023-06-19 13:51] VITALS: BMI 23.1
--- NOTE | 2023-06-20 09:56 | P.HPOR ---
History of Present Illness H&P Date: 06/20/23 Subjective: This is a 27 year old female that presents today for initial evaluation regarding a right hand injury that occurred three weeks ago. She states she missed a door knob in the garage and her hand went through glass and resulted in a finger laceration. She states she has been able to move the finger and she went to an urgent care at the time and no stitches were needed. She states she has had persistent numbness along the radial border of her ring finger and hypersensitivity with any type of touch around the incision. She states it feels like electrical shocks going down her finger if she does touch the scar. Physical Examination: RUE: AIN/PIN/Radial/Ulnar/Median motor intact. Radial/Ulnar/Median SILT. 2+/4 Radial/Ulnar pulses palpated. 5/5 APB, 5/5 FDI. Diminished sensation and hypersensitivy around radial boarder of ring finger distal to healed laceration. FDP/FDS intact. Imaging: X-Rays of the right hand 3V taken in office today demonstrate no abnormality. Impression: 1.) Right ring finger radial digital nerve laceration Plan: Diagnosis and treatment options were discussed with the patient. We discussed she has findings concerning for a digital nerve laceration of the ring finger. I recommend exploration with right ring finger digital nerve laceration repair, we discussed if there is any evidence of flexor tendon injury that would also be repaired at the same time. Risks and benefits of surgery including bleeding, infection, damage to surrounding tissue, need for further surgery, residual numbness were discussed and the patient wished to go forward with surgery. We discussed the goal is to restore protective sensation at the site of the nerve repair and that this can take up to 1 year after nerve repair. The patient was agreeable with this plan. CC:Rylee Valle DO Orthopedic Hand/Upper Extremity Surgeon Past Medical History Past Medical History: COPD, GERD/Reflux, Seizure Disorder, Skin Disorder Additional Past Medical History / Comment(s): SOB from COPD sometimes, no meds needed. IBS. Hx kidney stones, frequent UTI's. Low BP. Cold hands and feet. Hx seizure X1 beginning of 2022, had an infection, fever and rash at the time. Dermatitis/itchy skin. History of Any Multi-Drug Resistant Organisms: None Reported Past Surgical History: No Surgical Hx Reported Additional Past Surgical History / Comment(s): EGD. Past Anesthesia/Blood Transfusion Reactions: No Reported Reaction, Motion Sickness Smoking Status: Vaper - Past Family History Mother Family Medical History: No Reported History Medications and Allergies Home Medications Medication Instructions Recorded Confirmed Type Omeprazole 20 mg PO DAILY PRN 06/19/23 06/19/23 History Allergies Allergy/AdvReac Type Severity Reaction Status Date / Time No Known Allergies Allergy Verified 06/19/23 13:19 Physical Examination Osteopathic Statement: *. No significant issues noted on an osteopathic structural exam other than those noted in the History and Physical/Consult.
[~2023-06-21 08:39] MED LIST changes: +HYDROmorphone 0.5 MG/0.5 ML SYRINGE IVP PRN; -LIDOCAINE (PF) 10 MG/ML 2 ML VIAL IM NR; +LIDOCAINE 1% (10MG/ML) FOR IV START INTRADERMA PRN; +Pre Op ABX Message 1 EACH MISC MISCELLANE ONE; +SCOPOLAMINE 1 MG/72 HR PATCH TRANSDERM ONE; -cefTRIAXone 500 MG VIAL IM NR; -cefTRIAXone 500 MG VIAL IVPB NR; +droPERidol 5 MG/2 ML VIAL IVP ONE
[2023-06-21] MEDS: LACTATED RINGERS 1,000 ML IV SCH (09:01)
[2023-06-21] MEDS: ONDANSETRON 4 MG/2 ML VIAL IVP ONE (09:20)
[2023-06-21] MEDS: DEXAMETHASONE SOD PHOSPHATE 4 MG/ML 1 ML VIAL IV ONE (09:20)
[2023-06-21] MEDS ORDERED: LIDOCAINE 1% INJ 10MG/ML (20 ML MDV) ONE (09:58)
[2023-06-21] MEDS ORDERED: MIDAZOLAM 2 MG/2 ML VIAL ONE (09:58)
[2023-06-21] MEDS ORDERED: fentaNYL (PF) 50 MCG/ML 2 ML AMP ONE (09:58)
[2023-06-21] MEDS ORDERED: KETAMINE HCL IN 0.9 % NACL 50 MG/5 ML SYRINGE ONE (09:58)
[2023-06-21] MEDS ORDERED: PROPOFOL 10 MG/ML 20 ML VIAL IV ONE (09:58)
[2023-06-21] MEDS ORDERED: ePHEDrine 50 MG/ML 1 ML VIAL ONE (09:58)
[2023-06-21] MEDS: BUPIVACAINE (PF) 0.5% 30 ML VIAL SQ ONE ×3 (10:17→10:18)
[2023-06-21] MEDS: BACITRACIN ZINC 500 UNIT/GM OINT 28.4 GM TUBE TOPICAL ONE (10:49)
--- NOTE | 2023-06-21 11:14 | P.OP ---
Date of Procedure: 06/21/23 Preoperative Diagnosis: Right ring finger digital nerve laceration Postoperative Diagnosis: Right ring finger digital nerve laceration Procedure(s) Performed: Right ring finger radial digital nerve neuroplasty Anesthesia: [place] Surgeon: Smith Briseno Wagon Driver Salesperson #1: Antonino Raman Estimated Blood Loss (ml): 0 Pathology: none sent Condition: stable Disposition: PACU Description of Procedure: This is a 27 year old female who presents today for surgical intervention after sustaining a ring finger laceration with resulting numbness and pain in the digit with findings concerning for nerve injury. Risks and benefits of surgery were discussed with the patient including bleeding, damage to surrounding tissue, infection, need for further surgery as well as risks of anesthesia including pulmonary embolism and even and the patient wished to proceed with surgical intervention. The patient was seen in the pre-operative area by myself. Consent and H&P were completed and updated. The correct extremity was marked in the pre-operative area by myself and all other questions were answered. Operative Narrative: The patient was brought to the operating room by the department of anesthesia. They remained on the portable stretcher and a rolling hand table was brought to the side of the operative extremity. Pre-operative time out was performed indicating the correct patient, procedure and laterality. All in the room agreed. Pre-operative antibiotics were given prior to skin incision. The patient was then drifted off to sleep by the department of anesthesia. A nonsterile tourniquet was then applied to the operative extremity and the right upper extremity was then prepped and draped in normal sterile fashion. The operative extremity was the exsanguinated with an esmarch bandage and the tourniquet was inflated to 250mmHg. Kari type incision was made over the volar aspect of the ring finger at the level of the PIP joint and extended both proximally and distally. Blunt dissection was taken through subcutaneous tissues. The radial digital nerve was dissected out and found to have a longitudinal split of about 10-15% over the thickness of the nerve at the level of the middle phalanx with abundant neuroma formation around the longitudinal split. Using microsurgical instruments under loupe magnifaction the radial digital nerve neuroma tissue was excised and the remainder of the nerve was in continuity. The FDP and FDS tendons were identified any were not injured. Skin closure was performed with interrupted 4-0 nylon suture. Digital nerve block was performed with 10cc's of 0.5% bupivicaine. 4x4s, adapatic and bacitracin was applied to the finger. Tourniquet was let down and the digital had immediate perfusion. The patient was then woken by the department of anesthesia and transferred to PACU in stable condition. Antonino LEDEZMA was present for the procedure to assist in nerve repair and retraction. Smith Briseno D.O. Orthopedic Hand/Upper Extremity Surgeon
[2023-06-21 11:36] VITALS: TEMP 97.1
[2023-06-21 12:29] VITALS: BP 110/67; PULSE 70; RESP 18
== END 2023-06-21 12:20 | disposition home or self-care (01) ==
LOC: OR 08:39
PROVIDERS: ATTEND Orthopaedic Surgery Hand Surgery
DX: S61.214A Laceration without foreign body of right ring finger without damage to nail, initial encounter (principal); K21.9 Gastro-esophageal reflux disease without esophagitis; J44.9 Chronic obstructive pulmonary disease, unspecified; G40.909 Epilepsy, unspecified, not intractable, without status epilepticus; X58.XXXA Exposure to other specified factors, initial encounter; Z87.442 Personal history of urinary calculi; Z79.899 Other long term (current) drug therapy
CPT/HCPCS: 81025; 64831; J2250; J1100; J2405; J2001; J3010; J2704; J0665

== ENCOUNTER 2024-02-04 09:42 | Emergency (ER) | payer OTHER ==
[2024-02-04 09:55] VITALS: TEMP 98.4
--- NOTE | 2024-02-04 10:06 | ED ---
Female Urogenital HPI - General Chief complaint: Urogenital Stated complaint: unable to urinate,weakness, 10 wk preg Time Seen by Provider: 02/04/24 09:56 Source: patient, family, RN notes reviewed Mode of arrival: ambulatory Limitations: no limitations - History of Present Illness Initial comments: This is a 28-year-old female who presents to the emergency department for urinary symptoms. Patient is 10 weeks and . States that for the last 4 days she has had difficulty urinating and burning pain in the right lower quadrant radiating into the back. She has a history of UTIs and states that it feels similar. Denies any vaginal bleeding. States that she had an ultrasound about a month ago confirming the intrauterine . She does have her first appointment with an TRA[employer] in 2 days. Denies any nausea or vomiting. Additionally, states that she woke up this morning with some neck pain and she has also had intermittent pain in her back. Denies any chest pain or shortness of breath. - Related Data Home Medications Medication Instructions Recorded Confirmed Omeprazole 20 mg PO DAILY PRN 06/19/23 06/21/23 Previous Rx's Medication Instructions Recorded HYDROcodone/APAP 5-325MG [[place] 1 tab PO Q6HR PRN 3 Days #12 tab 06/21/23 5-325] Miconazole 2% Vaginal Cream 1 applicator VAGINAL HS 7 Days #45 02/04/24 [Monistat 7] gm Allergies Allergy/AdvReac Type Severity Reaction Status Date / Time No Known Allergies Allergy Verified 02/04/24 09:50 Review of Systems ROS Statement: Those systems with pertinent positive or pertinent negative responses have been documented in the HPI. ROS Other: All systems not noted in ROS Statement are negative. Past Medical History Past Medical History: COPD, GERD/Reflux, Seizure Disorder, Skin Disorder Additional Past Medical History / Comment(s): SOB from COPD sometimes, no meds needed. IBS. Hx kidney stones, frequent UTI's. Low BP. Cold hands and feet. Hx seizure X1 beginning of 2022, had an infection, fever and rash at the time. D ermatitis/itchy skin. History of Any Multi-Drug Resistant Organisms: None Reported Past Surgical History: No Surgical Hx Reported Additional Past Surgical History / Comment(s): EGD. Past Anesthesia/Blood Transfusion Reactions: No Reported Reaction, Motion Sickness Past Psychological History: Anxiety, Bipolar, Depression Smoking Status: Vaper Past Alcohol Use History: None Reported Past Drug Use History: None Reported - Past Family History Mother Family Medical History: No Reported History General Exam Limitations: no limitations General appearance: alert, in no apparent distress Head exam: Present: atraumatic, normocephalic, normal inspection Respiratory exam: Present: normal lung sounds bilaterally. Absent: respiratory distress, wheezes, rales, rhonchi, stridor Cardiovascular Exam: Present: regular rate, normal rhythm, normal heart sounds. Absent: systolic murmur, diastolic murmur, rubs, gallop, clicks Neurological exam: Present: alert, oriented X3, CN II-XII intact Psychiatric exam: Present: normal affect, normal mood Skin exam: Present: warm, dry, intact, normal color. Absent: rash Course Vital Signs 02/04/24 02/04/24 09:50 12:35 Temperature 98.4 F Pulse Rate 83 86 Respiratory 18 20 Rate Blood Pressure 133/78 130/83 O2 Sat by Pulse 99 99 Oximetry Medical Decision Making - Medical Decision Making This is a 28 year old female who presents to the emergency department for urinary symptoms. Was pt. sent in by a medical professional or institution? @ -No Did you speak to anyone other than the patient for history? @ -No Did you review nursing and triage notes? @ -Yes, and I agree, it is accurate with regards to the patient's symptoms. Were old charts reviewed? @ -No Differential Diagnosis? @ -UTI, STI, pyelonephritis, kidney stone, this is not meant to be an all- inclusive list. EKG interpreted by me (3pts min.)? @ -Not obtained X-rays interpreted by me (1pt min.)? @ -Not obtained CT interpreted by me (1pt min.)? @ -Not obtained U/S interpreted by me (1pt. min.)? @ -Not obtained What testing was considered but not performed? (CT, X-rays, U/S, labs)? Why? @ -Obstetrics ultrasound, however patient declined What meds were considered but not given? Why? @ -None Did you discuss the management of the patient with other professionals? @ -No Did you reconcile home meds? @ -No Was smoking cessation discussed for >3mins.? @ -No Was critical care preformed (if so, how long)? @ -No Were there social determinants of health that impacted care today? How? (Homelessness, low income, unemployed, alcoholism, drug addiction, transportation, low edu. Level, literacy, decrease access to med. care, custodial, rehab)? @ -No Was there de-escalation of care discussed even if they declined? (Discuss DNR or withdrawal of care, Hospice)? @ -No What co-morbidities impacted this encounter? (DM, HTN, Smoking, COPD, CAD, Cancer, CVA, Hep., AIDS, mental health diagnosis, sleep apnea, morbid obesity)? @ -None Was patient admitted / discharged? @ -Discharged. Lab work unremarkable. Beta-hCG is 041966. Urinalysis negative for signs of infection, but does contain a large amount of yeast. Advised that in intravaginal therapy is advised as opposed to oral Diflucan. Prescription for miconazole cream provided. States that her other symptoms had largely resolved in the emergency department and she had no complaints. I did offer an ultrasound due to the discomfort she had, however she said it was more of a mild burning pain and she was not overly concerned. She declined the ultrasound and states that she would rather just follow-up with her [employer] as scheduled in 2 days. Patient discharged home in stable condition. Case discussed with ED attending Dr. Mathews. Return precautions reviewed in depth, the patient is instructed to return to the emergency department with any new, worsening, or concerning symptoms. Patient verbalized understanding. Undiagnosed new problem with uncertain prognosis? @ -None Drug Therapy requiring intensive monitoring for toxicity (Heparin, Nitro, Insulin, Cardizem)? @ -None Were any procedures done? @ -None Diagnosis/symptom? @ -Yeast infection, neck pain Acute, or Chronic, or Acute on Chronic? @ -Acute Uncomplicated (without systemic symptoms) or Complicated (systemic symptoms)? @ -Uncomplicated Side effects of treatment? @ -None Exacerbation, Progression, or Severe Exacerbation] @ -Not applicable Poses a threat to life or bodily function? @ -No - Lab Data Result diagrams: 02/04/24 10:23 02/04/24 10:23 Lab Results 02/04/24 02/04/24 02/04/24 Range/Units 10:23 10:23 10:23 WBC 9.5 (3.8-10.6) k/uL RBC 4.52 (3.80-5.40) m/uL Hgb 13.5 (11.4-16.0) gm/dL Hct 39.6 (34.0-46.0) % MCV 87.7 (80.0-100.0) fL MCH 29.9 (25.0-35.0) pg MCHC 34.1 (31.0-37.0) g/dL RDW 12.6 (11.5-15.5) % Plt Count 384 (150-450) k/uL MPV 7.4 Neutrophils % 73 % Lymphocytes % 20 % Monocytes % 4 % Eosinophils % 1 % Basophils % 0 % Neutrophils # 6.9 (1.3-7.7) k/uL Lymphocytes # 1.9 (1.0-4.8) k/uL Monocytes # 0.4 (0-1.0) k/uL Eosinophils # 0.1 (0-0.7) k/uL Basophils # 0.0 (0-0.2) k/uL Sodium 136 L (137-145) mmol/L Potassium 4.2 (3.5-5.1) mmol/L Chloride 104 (98-107) mmol/L Carbon Dioxide 23 (22-30) mmol/L Anion Gap 9 mmol/L BUN 7 (7-17) mg/dL Creatinine 0.42 L (0.52-1.04) mg/dL Est GFR (CKD-EPI)AfAm >90 (>60 ml/min/1.73 sqM) Est GFR (CKD-EPI)NonAf >90 (>60 ml/min/1.73 sqM) Glucose 99 (74-99) mg/dL Calcium 9.6 (8.4-10.2) mg/dL Total Bilirubin 0.4 (0.2-1.3) mg/dL AST 18 (14-36) U/L ALT 13 (4-34) U/L Alkaline Phosphatase 46 (38-126) U/L Total Protein 7.2 (6.3-8.2) g/dL Albumin 4.2 (3.5-5.0) g/dL HCG, Quant 904674.0 mIU/mL Urine Color Colorless Urine Appearance Turbid H (Clear) Urine pH 8.0 (5.0-8.0) Ur Specific [place] 1.015 (1.001-1.035) Urine Protein Negative (Negative) Urine Glucose (UA) Negative (Negative) Urine Ketones Negative (Negative) Urine Blood Negative (Negative) Urine Nitrite Negative (Negative) Urine Bilirubin Negative (Negative) Urine Urobilinogen <2.0 (<2.0) mg/dL Ur Leukocyte Esterase Negative (Negative) Urine RBC 1 (0-5) /hpf Urine WBC 4 (0-5) /hpf Ur Squamous Epith Cells 5 H (0-4) /hpf Urine Bacteria Rare H (None) /hpf Urine Yeast (Budding) Many H (None) /hpf Disposition Clinical Impression: Yeast infection Disposition: HOME SELF-CARE Instructions (If sedation given, give patient instructions): Yeast Infection (ED) Additional Instructions: Return to the emergency department with any new, worsening, or concerning symptoms. Apply the miconazole cream each night for the next week. Follow up with your [employer] as scheduled. Prescriptions: Miconazole 2% Vaginal Cream [Monistat 7] 1 applicator VAGINAL HS 7 Days #45 gm Is patient prescribed a controlled substance at d/c from ED?: No Referrals: Rylee Reilly DO [Primary Care Provider] - 1-2 days Time of Disposition: 12:10
[2024-02-04] MEDS: SODIUM CHLORIDE 0.9% 1,000 ML IV STA (10:25)
[2024-02-04 10:42] LABS: Basophils % (A) 0 %; Eosinophils # (A) 0.1 k/uL (0-0.7); Eosinophils % (A) 1 %; HCT 39.6 % (34.0-46.0); HGB 13.5 gm/dL (11.4-16.0); Lymphocytes # (A) 1.9 k/uL (1.0-4.8); Lymphocytes % (A) 20 %; MCH 29.9 pg (25.0-35.0); MCHC 34.1 g/dL (31.0-37.0); MCV 87.7 fL (80.0-100.0); Mean Platelet Volume 7.4; Monocytes # (A) 0.4 k/uL (0-1.0); Monocytes % (A) 4 %; Neutrophils # (A) 6.9 k/uL (1.3-7.7); Neutrophils % (A) 73 %; Platelet Count 384 k/uL (150-450); RBC 4.52 m/uL (3.80-5.40); RDW 12.6 % (11.5-15.5); WBC 9.5 k/uL (3.8-10.6)
[2024-02-04 10:59] LABS: ALT 13 U/L (4-34); AST 18 U/L (14-36); African American GFR (CKD) >90 (>60 ml/min/1.73 sqM); Albumin 4.2 g/dL (3.5-5.0); Alkaline Phosphatase 46 U/L (38-126); Anion Gap 9 mmol/L; Blood Urea Nitrogen 7 mg/dL (7-17); Calcium 9.6 mg/dL (8.4-10.2); Carbon Dioxide 23 mmol/L (22-30); Chloride 104 mmol/L (98-107); Glucose 99 mg/dL (74-99); Non-African American GFR(CKD) >90 (>60 ml/min/1.73 sqM); Potassium 4.2 mmol/L (3.5-5.1); Sodium 136 mmol/L (137-145); Total Bilirubin 0.4 mg/dL (0.2-1.3); Total Protein 7.2 g/dL (6.3-8.2)
[2024-02-04 11:04] LABS: Appearance,Urine Turbid (Clear); Bacteria,Urine Rare /hpf; Bilirubin,Urine Negative (Negative); Blood,Urine Negative (Negative); Budding Yeast,Urine Many /hpf; Color,Urine Colorless; Glucose,Urine (UA) Negative (Negative); Ketones,Urine Negative (Negative); Leukocyte Esterase,Urine Negative (Negative); Nitrite,Urine Negative (Negative); Protein,Urine Negative (Negative); RBC,Urine 1 /hpf (0-5); Specific Gravity,Urine 1.015 (1.001-1.035); Squamous Epithelial Cell,Urine 5 /hpf (0-4); Urobilinogen,Urine <2.0 mg/dL (<2.0); WBC,Urine 4 /hpf (0-5)
[2024-02-04 12:36] VITALS: BP 130/83; PULSE 86; RESP 20
== END 2024-02-04 12:36 | disposition home or self-care (01) ==
LOC: EC 09:42
DX: O99.891 Other specified diseases and conditions complicating pregnancy (principal); B37.49 Other urogenital candidiasis; O99.331 Smoking (tobacco) complicating pregnancy, first trimester; F17.290 Nicotine dependence, other tobacco product, uncomplicated; Z3A.10 10 weeks gestation of pregnancy
CPT/HCPCS: 36415; 51798; 80053; 81001; 84702; 85025; 96360; 99285

== ENCOUNTER 2024-07-24 18:35 | Outpatient (CLI) | payer OTHER ==
[2024-07-24 20:00] LABS: Appearance,Urine Cloudy (Clear); Bilirubin,Urine Negative (Negative); Blood,Urine Large (Negative); Color,Urine Yellow; Glucose,Urine (UA) Negative (Negative); Ketones,Urine Negative (Negative); Leukocyte Esterase,Urine Trace (Negative); Mucus,Urine Rare /hpf; Nitrite,Urine Negative (Negative); PH, Urine 6.5 (5.0-8.0); Protein,Urine Trace (Negative); RBC,Urine >182 /hpf (0-5); Specific Gravity,Urine 1.021 (1.001-1.035); Squamous Epithelial Cell,Urine 8 /hpf (0-4); Urobilinogen,Urine <2.0 mg/dL (<2.0); WBC,Urine 2 /hpf (0-5)
[2024-07-24] MEDS: CEPHALEXIN 500 MG CAP PO STA (20:32)
[2024-07-24] MEDS: ACETAMINOPHEN TAB 325 MG TAB PO STA (20:32)
[2024-07-25 03:29] VITALS: BP 120/74; PULSE 84; RESP 16; TEMP 97.3
--- NOTE | 2024-08-06 20:37 | P.MSEPDOC ---
Presenting Problems - Arrival Data Date of Arrival on Unit: 07/24/24 Time of Arrival on Unit: 18:35 Mode of Transport: Ambulatory - Complaint OB-Reason for Admission/Chief Complaint: Pain, Signs/Symptoms UTI Comment: Pt arrives to triage complaints of cramping that started around noon today. Denies contractions, denies urinary or bowel complitcations. States pain is 5/10 cramping all over abdomen. Medical History - Information : 2 Para: 0 Term: 0 : 0 Abortions: Spontaneous or Elective: 1 Number of Living Children: 0 - Gestational Age Gestational Age by YOBANY (wks/days): 34 Weeks and 2 Days - History Complications: GDM Sexually Transmitted Diseases: HSV Review of Systems - Review of Systems Constitutional: No problems Breast: No problems ENT: No problems Cardiovascular: No problems Respiratory: No problems Gastrointestinal: No problems Genitourinary: No problems Musculoskeletal: No problems Neurological: No problems Skin: No problems Vital Signs - Temperature Temperature: 97.3 F Temperature Source: Temporal Artery Scan - Pulse Pulse Oximetery Pulse Rate: 84 Pulse Assessment Method: Pulse Oximetry - Respirations Respiratory Rate: 16 Oxygen Delivery Method: Room Air O2 Sat by Pulse Oximetry: 99 - Blood Pressure Right Arm Blood Pressure: 120/74 Blood Pressure Mean: 89 Blood Pressure Source: Automatic Cuff Medical Screen Scoring - Cervical Exam Dilation (cm): 0 Membranes: Intact - Assessment - Baby A Baseline FHR: 120 Heart Rate - NICHD Category: Category I (Normal) NST: Reactive Physician Notification - Physician Notified Physician Notified Date: 07/24/24 Physician Notified Time: 19:16 Physician: Dr. Salazar New Order Received: Yes - Notification Comment Comment: Dr. 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 Dr. Salazar ordered a U/A on patient and a cervical check. Patient was unable to give RN a urine Dr. Salazar ordered patient to drink water. Dr. Salazar aware of lab results and ordered Keflex 500Mg BID for patient to bead picker at [facility] tomorrow morning. RN to give patient a dose of Keflex in triage due to pharmacy being closed tonight. Tylenol 650mg ordered for pain. Patient stated pain felt better 3/10 after drinking [address] Salazar wants patient to follow up with and Urologist she normally sees for hx of painful bladder symdrome and kidney stones. Maternal Triage Index - Non-Urgent/Priority 4 Non-Urgent Priority 4: Yes Criteria Met for Priority 4: pt arrives to triage complaints of cramping that started around noon today. Pain 06/29. Disposition - Disposition OB Disposition: Discharge to home Discharge Date: 07/24/24 Discharge Time: 20:34 I agree with the RN Medical Screening Exam: Yes Case reviewed; plan agreed upon as documented in EMR&OBIX.: Yes Diagnosis: RELATED CONDITIONS, UNSPECIFIED, THIRD TRIMESTER
== END 2024-07-24 20:34 | disposition home or self-care (01) ==
LOC: FBPOP 18:35
PROVIDERS: ATTEND Obstetrics & Gynecology Obstetrics
DX: O26.893 Other specified pregnancy related conditions, third trimester (principal); O99.333 Smoking (tobacco) complicating pregnancy, third trimester; F17.200 Nicotine dependence, unspecified, uncomplicated; Z3A.34 34 weeks gestation of pregnancy
CPT/HCPCS: 81001; G0463; 59025; 99213